=== PATIENT | male | born 1955 ===

== ENCOUNTER 2021-02-28 14:51 | Inpatient (IN) | payer BC, MEDICARE ==
[~2021-02-28] VITALS: Ht 172.7 cm; Wt 73.5 kg
[2021-02-28] MEDS ORDERED: HYDROmorphone 1 MG/ML, 1ML INJ ONE ×2 (15:52→16:33)
[2021-02-28] MEDS ORDERED: ONDANSETRON 2MG/ML, 2ML ONE ×2 (15:52→19:51)
[2021-02-28] MEDS ORDERED: SODIUM CHLORIDE 0.9% 1,000ML IVBOLUS ONE (16:00)
[2021-02-28] MEDS ORDERED: HYDROmorphone 1 MG/ML, 1ML INJ IV ONE ×2 (16:00→17:00)
[2021-02-28] MEDS ORDERED: SODIUM CHLORIDE 0.9% 1,000 ML IV ONE ×2 (16:00→18:00)
[2021-02-28] MEDS ORDERED: SODIUM CHLORIDE FLUSH 10ML SYR IVF ONE (16:00)
[2021-02-28] MEDS ORDERED: ONDANSETRON 2MG/ML, 2ML IVPush ONE (16:00)
[2021-02-28 16:28] LABS: BASOPHILS % (AUTO) 1 % (0-1); EOSINOPHILS % (AUTO) 2 % (1-7); LYMPHOCYTES % (AUTO) 11 % (22-44); MEAN CORPUSCULAR HEMOGLOBIN 27.9 pg (27.5-34.5); MEAN CORPUSCULAR HGB CONC 31.7 g/dL (33.2-36.2); MEAN PLATELET VOLUME 8.1 fL (7.4-10.4); MONOCYTES % (AUTO) 13 % (2-9); NEUTROPHILS % (AUTO) 74 % (42-75); PLATELET COUNT 110 x10^3/uL (130-400); RED CELL DISTRIBUTION WIDTH 20.9 % (9.4-14.8)
[2021-02-28 16:35] LABS: ALANINE AMINOTRANSFERASE 36 U/L (12-78); ANION GAP 8 mmol/L (5-15); CALCIUM 8.5 mg/dL (8.5-10.1); CHLORIDE 106 mmol/L (98-107)
[2021-02-28 16:38] LABS: ALKALINE PHOSPHATASE 125 U/L (45-117); BILIRUBIN,TOTAL 0.8 mg/dL (0.2-1.0); CREATININE 1.12 mg/dL (0.7-1.3)
--- NOTE | 2021-02-28 16:40 | NUR ---
BREAK RN: ULTRASOUND AT BEDSIDE. TO BE MEDICATED FOR PAIN ORDERED. FAMILY AT BEDSIDE.
--- NOTE | 2021-02-28 16:47 | NUR ---
BREAK RN: MEDICATED FOR PAIN AT SITE OF UMBILICAL HERNIA. VS UPDATED
[2021-02-28] MEDS ORDERED: HYDROmorphone 1 MG/ML, 1ML INJ IVPush PRN (18:00)
[2021-02-28] MEDS ORDERED: LABETALOL 5MG/ML, 20ML IV PRN (18:00)
[2021-02-28] MEDS ORDERED: ACETAMINOPHEN 325 MG TABLET PO PRN (18:00)
[2021-02-28] MEDS ORDERED: OXYcodone 5 MG/5 ML ORAL.SOL UDC PO PRN (18:00)
[2021-02-28] MEDS ORDERED: ONDANSETRON 2MG/ML, 2ML IVPush PRN ×2 (18:00→19:00)
[2021-02-28] MEDS ORDERED: MEPERIDINE/PF 25MG/0.5ML IVPush PRN (18:00)
[2021-02-28] MEDS ORDERED: PROMETHAZINE 25 MG/ML, 1ML IVPush PRN (18:00)
[2021-02-28] MEDS ORDERED: FENTANYL PF 100 MCG/2ML IV PRN (18:00)
[2021-02-28] MEDS ORDERED: hydrALAzine 20 MG/ML, 1ML IV PRN (18:00)
[2021-02-28] MEDS ORDERED: SODIUM CHLORIDE FLUSH 10ML SYR IVF PRN (18:00)
[2021-02-28] MEDS ORDERED: FENTANYL PF 250 MCG/5ML ONE (18:10)
--- NOTE | 2021-02-28 18:11 | NUR ---
JANA GODWIN SISTER: [phone]
[2021-02-28] MEDS ORDERED: CEFOTETAN 2 GM ONE (18:52)
[2021-02-28] MEDS ORDERED: ROCURONIUM 10MG/ML,5ML ONE (19:00)
[2021-02-28] MEDS ORDERED: morphine SULFATE 10 MG/ML, 1ML IVPush PRN (19:00)
[2021-02-28] MEDS ORDERED: PROPOFOL 10 MG/ML, 20ML ONE (19:00)
[2021-02-28] MEDS: SODIUM CHLORIDE 0.9% 1,000 ML IV SCH (19:00)
[2021-02-28] MEDS ORDERED: BISACODYL 10 MG SUPP PR PRN (19:00)
[2021-02-28] MEDS ORDERED: SUCCINYLCHOLINE 20 MG/ML, 10ML ONE (19:01)
[2021-02-28] MEDS ORDERED: DEXAMETHASONE 4 MG/ML, 5ML ONE (19:01)
[2021-02-28] MEDS ORDERED: BUPIVACAINE/PF 0.5% ONE (19:08)
[2021-02-28] MEDS ORDERED: EPINEPHRINE 1 MG/ML, 1ML ONE (19:08)
[2021-02-28] MEDS ORDERED: EPHEDRINE 50 MG/ML, 1ML ONE (19:14)
[2021-02-28] MEDS ORDERED: FENTANYL PF 100 MCG/2ML ONE (20:24)
[2021-02-28] MEDS ORDERED: OXYcodone 5 MG/5 ML ORAL.SOL UDC ONE (20:25)
[2021-02-28] MEDS ORDERED: hydrALAzine 20 MG/ML, 1ML ONE (21:30)
[2021-02-28] MEDS ORDERED: ACETAMINOPHEN 650 MG/20.3 ML UDC ONE (21:33)
[2021-03-01 00:57] LABS: INTERNATIONAL NORMALIZED RATIO 1.13 (0.93-1.1); PROTHROMBIN TIME 12.1 Seconds (9.6-11.5)
[2021-03-01 01:37] VITALS: BP 121/62
[2021-03-01 03:14] VITALS: BP 117/56
[2021-03-01 04:55] LABS: BASOPHILS % (AUTO) 0 % (0-1); EOSINOPHILS % (AUTO) 0 % (1-7); LYMPHOCYTES % (AUTO) 8 % (22-44); MEAN CORPUSCULAR HEMOGLOBIN 28.3 pg (27.5-34.5); MEAN CORPUSCULAR HGB CONC 31.9 g/dL (33.2-36.2); MEAN PLATELET VOLUME 8.6 fL (7.4-10.4); MONOCYTES % (AUTO) 5 % (2-9); NEUTROPHILS % (AUTO) 87 % (42-75); PLATELET COUNT 93 x10^3/uL (130-400); RED BLOOD COUNT 4.17 x10^6/uL (4.38-5.82); RED CELL DISTRIBUTION WIDTH 21.1 % (9.4-14.8)
[2021-03-01 05:01] LABS: ANION GAP 9 mmol/L (5-15); CALCIUM 8.6 mg/dL (8.5-10.1); CHLORIDE 105 mmol/L (98-107)
[2021-03-01 05:03] LABS: CREATININE 1.18 mg/dL (0.7-1.3)
[2021-03-01 06:30] VITALS: BP 113/54
[2021-03-01] MEDS: SODIUM CHLORIDE 0.9% 1,000 ML IV SCH ×2 (08:44→20:00)
[2021-03-01] MEDS ORDERED: CLOP75TA52 PO (09:50)
[2021-03-01] MEDS ORDERED: METO-290 PO (09:50)
[2021-03-01] MEDS ORDERED: METF500T17 PO (09:50)
[2021-03-01] MEDS ORDERED: CETI10TA18 PO (09:50)
[2021-03-01] MEDS ORDERED: FERR-36 PO (09:50)
[2021-03-01] MEDS ORDERED: [UNRECOGNIZED DRUG - CODE] PO (09:50)
[2021-03-01] MEDS ORDERED: DIPH25TA65 PO (09:50)
[2021-03-01] MEDS ORDERED: ATOR-2 PO (09:50)
[2021-03-01] MEDS ORDERED: SPIR25TA5 PO (09:50)
[2021-03-01] MEDS ORDERED: ASPI81TA45 PO (09:50)
[2021-03-01] MEDS ORDERED: EMPA25TA PO (09:50)
[2021-03-01] MEDS ORDERED: OMEP20CA20 PO (09:50)
[2021-03-01] MEDS ORDERED: LISI2.5T PO (09:50)
[2021-03-01 12:49] VITALS: BP 125/55
[2021-03-01] MEDS: FERROUS SULFATE 325 MG TABLET PO SCH ×2 (16:47→23:05)
[2021-03-01 19:21] VITALS: BP 112/51
[2021-03-01] MEDS: METOPROLOL SUCCINATE 100 MG TAB.ER.24H PO SCH (23:05)
[2021-03-01] MEDS: ATORVASTATIN 80 MG TABLET PO SCH (23:05)
[2021-03-02 01:41] VITALS: BP 121/55
[2021-03-02 05:30] LABS: BASOPHILS % (AUTO) 0 % (0-1); EOSINOPHILS % (AUTO) 1 % (1-7); LYMPHOCYTES % (AUTO) 13 % (22-44); MEAN CORPUSCULAR HEMOGLOBIN 28.2 pg (27.5-34.5); MEAN CORPUSCULAR HGB CONC 32.6 g/dL (33.2-36.2); MEAN PLATELET VOLUME 8.6 fL (7.4-10.4); MONOCYTES % (AUTO) 13 % (2-9); NEUTROPHILS % (AUTO) 73 % (42-75); PLATELET COUNT 109 x10^3/uL (130-400); RED BLOOD COUNT 3.84 x10^6/uL (4.38-5.82); RED CELL DISTRIBUTION WIDTH 21.3 % (9.4-14.8)
[2021-03-02 05:32] LABS: CHLORIDE 104 mmol/L (98-107)
[2021-03-02 05:37] LABS: ANION GAP 7 mmol/L (5-15); CALCIUM 8.5 mg/dL (8.5-10.1); CREATININE 0.91 mg/dL (0.7-1.3)
[2021-03-02] MEDS: SODIUM CHLORIDE 0.9% 1,000 ML IV SCH ×3 (06:00→21:23)
[2021-03-02] MEDS: OMEPRAZOLE 20 MG CAPSULE.DR PO SCH (06:41)
[2021-03-02 07:37] VITALS: BP 109/69
[2021-03-02] MEDS: ASPIRIN 81 MG TABLET EC PO SCH (08:30)
[2021-03-02] MEDS: FERROUS SULFATE 325 MG TABLET PO SCH ×3 (08:31→20:11)
[2021-03-02] MEDS: LISINOPRIL 5 MG TABLET PO SCH (08:31)
[2021-03-02] MEDS: SPIRONOLACTONE 25 MG TABLET PO SCH (08:31)
[2021-03-02] MEDS: metFORMIN 500 MG TABLET PO SCH (08:31)
[2021-03-02] MEDS: SENNA/DOCUSATE TABLET PO SCH ×2 (08:33→20:11)
[2021-03-02] MEDS ORDERED: TENOFOVIR 300MG TABLET PO SCH (09:00)
[2021-03-02 13:14] VITALS: BP 110/52
[2021-03-02 20:00] VITALS: BP 108/52
[2021-03-02] MEDS: ATORVASTATIN 80 MG TABLET PO SCH (20:11)
[2021-03-02] MEDS: METOPROLOL SUCCINATE 100 MG TAB.ER.24H PO SCH (20:24)
[2021-03-03 02:15] VITALS: BP 110/56
[2021-03-03] MEDS: OMEPRAZOLE 20 MG CAPSULE.DR PO SCH (05:34)
[2021-03-03 07:35] VITALS: BP 103/47
[2021-03-03] MEDS ORDERED: CLOPIDOGREL 75 MG TABLET PO SCH (09:00)
[2021-03-03 09:05] VITALS: BP 123/57
[2021-03-03] MEDS: SPIRONOLACTONE 25 MG TABLET PO SCH (09:29)
[2021-03-03] MEDS: ASPIRIN 81 MG TABLET EC PO SCH (09:30)
[2021-03-03] MEDS: FERROUS SULFATE 325 MG TABLET PO SCH (09:30)
[2021-03-03] MEDS: SENNA/DOCUSATE TABLET PO SCH (09:31)
[2021-03-03] MEDS: metFORMIN 500 MG TABLET PO SCH (09:31)
[2021-03-03] MEDS: LISINOPRIL 5 MG TABLET PO SCH (09:31)
[2021-03-03 12:04] VITALS: BP 104/33
[2021-03-03 12:31] VITALS: BP 130/68
== END 2021-03-03 14:15 | disposition home or self-care (01) | DRG 329 ==
LOC: ED 17:00 → EDIP 18:26 → 4NE 21:50
PROVIDERS: ADMIT Internal Medicine; ATTEND Family Medicine
PROC: 0WQF0ZZ Repair Abdominal Wall, Open Approach (ICD-10-PCS; 2021-02-28)
PROC: 0DB80ZZ Excision of Small Intestine, Open Approach (ICD-10-PCS; principal; 2021-02-28 18:15)
DX: K43.6 Other and unspecified ventral hernia with obstruction, without gangrene (principal); K55.029 Acute infarction of small intestine, extent unspecified; B18.1 Chronic viral hepatitis B without delta-agent; Z20.822 Contact with and (suspected) exposure to COVID-19; B19.20 Unspecified viral hepatitis C without hepatic coma; D64.9 Anemia, unspecified; D69.6 Thrombocytopenia, unspecified; E11.9 Type 2 diabetes mellitus without complications; I10 Essential (primary) hypertension; I25.10 Atherosclerotic heart disease of native coronary artery without angina pectoris; I25.2 Old myocardial infarction; K42.0 Umbilical hernia with obstruction, without gangrene; Z85.46 Personal history of malignant neoplasm of prostate; Z90.79 Acquired absence of other genital organ(s); Z95.5 Presence of coronary angioplasty implant and graft; Z96.642 Presence of left artificial hip joint; Z96.652 Presence of left artificial knee joint; Z79.82 Long term (current) use of aspirin; Z79.84 Long term (current) use of oral hypoglycemic drugs
CPT/HCPCS: 36415; 96361; 96374; 96375; 96376; 99285; S0020; 76705; 80048; 80053; 80074; 83605; 85025; 85610; 85730; 87635; 88307; 93005; C1729; G0378; J0171; J1100; J1170; J2405; J2704; J3010; J0330; J0360; J7030